=== PATIENT | female | born 1995 | race American Indian/Alaskan Native ===

== ENCOUNTER 2018-08-11 11:11 | Observation (INO) | payer BC ==
--- NOTE | 2018-08-11 11:36 | ED PDOC ---
HPI:STROKE - Time Time: 11:33 - Historian Historian: Patient, Partner - Chief Complaint Chief Complaint: other (seizure) - Onset Date: 08/11/18 Time: 10:45 - TPA Positive for Contraindication: Yes Reason tPA is not being Administered: seizures; nih 0 - Notes: Notes:: Pt. was with boyfriend and got left facial numbness and then twitching of her neck. After that she got a seizure with shaking all over for 5-7 seconds. It stopped and then 10 seconds later had another one for 5-7 seconds. 10 seconds later had a 3rd seizure that lasted 5-7 seconds. Pt. has a hx of seizures, but gets them randomly at night. Not on meds for it. Was post-ictal for a bit after. 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 Pt. denies any pain, dyspnea, weakness, dizziness, headaches, vision changes, abd pain, nausea, vomit, diarrhea. No numbness, tingles. No tongue bite or incontinence. NIHSS Stroke Scale - Date/Time Evaluation Performed Date Performed: 08/11/18 Time Performed: 11:15 When Was NIHSS Performed: Baseline - How Severe is the Stroke Level of Consciousness: 0=Alert LOC to Questions: 0=Both comments correct LOC to commands: 0=Obeys both correctly Best Gaze: 0=Normal Visual: 0=No visual loss Facial: 0=Normal Motor Arm - Left: 0=No drift Motor Arm - Right: 0=No drift Motor Leg - Left: 0=No drift Motor Leg - Right: 0=No drift Limb Ataxia: 0=Absent Sensory: 0=Normal Best Language: 0=No aphasia Dysarthia: 0=Normal articulation Extinction & Inattention (Neglect): 0=Normal, no object Score: 0 rTPA Inclusion/Exclusion - Refusal of Treatment Patient Refused Treatment: No - Inclusion Criteria for Altepase Patient is 18 years or Older: Yes The Clinical Diagnosis of Ischemic Stroke That is Causing a Potentially Disabling Neurological Deficit: No Time of Onset is Well Established to be Less Than 270 Minute Before Treatment Would Begin: Yes Risk/Benefit Discussed With Patient/Family Member Present: No Past Medical History Reviewed: Nursing Documentation, Vital Signs Vital Signs: Last Vital Signs Temp 97.0 F L 08/11/18 11:14 Pulse 95 H 08/11/18 11:14 Resp 18 08/11/18 11:14 BP 139/89 08/11/18 11:14 Pulse Ox 100 08/11/18 11:14 - Medical History PMH: Seizures - Surgical History Surgical History: No Surg Hx - Family History Family History: States: Unknown Family Hx - Living Arrangements Living Arrangements: With Family - Social History Current smoker - smoking cessation education provided: No Alcohol: None Drugs: Denies - Allergies Allergies/Adverse Reactions: Allergies Allergy/AdvReac Type Severity Reaction Status Date / Time mushroom Allergy RASH Verified 08/11/18 11:14 Review of Systems ROS Statement: Except As Marked, All Systems Reviewed And Found Negative Neurological: Positive for: Seizures Physical Exam - Reviewed Nursing Documentation Reviewed: Yes - Physical Exam Appears: Positive for: Uncomfortable Head Exam: Positive for: ATRAUMATIC, NORMAL INSPECTION, NORMOCEPHALIC Skin: Positive for: Normal Color, Warm, DRY Eye Exam: Positive for: Normal appearance, EOMI, PERRL. Negative for: Periorbital swelling, Periorbital tenderness ENT: Positive for: Normal ENT Inspection, Other (no septal hematoma; no tongue laceration). Negative for: Nasal Congestion Neck: Positive for: Normal, Painless ROM Cardiovascular/Chest: Positive for: Regular Rate, Rhythm Respiratory: Positive for: CNT, Normal Breath Sounds Gastrointestinal/Abdominal: Positive for: Normal Exam, Soft. Negative for: Tenderness Back: Positive for: Normal Inspection. Negative for: L CVA Tenderness, R CVA Tenderness Extremity: Positive for: Normal ROM. Negative for: Tenderness, Pedal Edema Neurologic/Psych: Positive for: Alert, lining repairer II-XII, Oriented. Negative for: Motor/Sensory Deficits, Aphasia, Facial Droop - Laboratory Results Result Diagrams: 08/11/18 11:45 08/11/18 11:45 Interpretation Of Abn Labs: no acute - ECG ECG Rhythm: Positive for: Normal QRS, Sinus Rhythm, Nonspecific Changes O2 Sat by Pulse Oximetry: 100 Pulse Ox Interpretation: Normal - Radiology X-Ray: Read By Radiologist X-Ray Interpretation: No Acute Disease - CT Scan/US ct Other Rad Studies (CT/US): Read By Radiologist Other Rad Interpretation: no acute - Progress ED Course And Treament: 1120: Spoke with Dr. Espitia. Not a tpa candidate. Wants workup and give keppra for seizure. 1226: Stable. Pending labs. 1357: Stable. AAOx3. Feels better. Advised to stay in the hospital as reque sted by neurology. 1415: Spoke with Dr. Dowell. Will admit tele obs. - Critical Care Total Time (In Min): 30 Documented Critical Care: Time excludes all time spent performint seperately billable procedures Disposition - Clinical Impression Clinical Impression: Epileptic seizure, generalized - Patient ED Disposition Is Patient to be Admitted: Yes Counseled Patient/Family Regarding: Studies Performed, Diagnosis - Disposition Disposition Time: 13:16 Condition: FAIR - Pt Status Changed To: Hospital Disposition Of: Observation - POA Present On Arrival: None
[2018-08-11] MEDS ORDERED: levETIRAcetam 1,000 MG in Sodium Chloride 0.9% 100 ML IVPB ONE (12:00)
[2018-08-11 12:16] LABS: BASO % 0.6 % (0.0-2.0); EOS # 0.1 K/uL (0.0-0.7); EOS % 2.2 % (0.0-4.0); HEMOGLOBIN 12.6 g/dL (12.0-16.0); INR 0.9; LYMPH # 2.1 K/uL (1.0-4.3); LYMPH % 37.6 % (20.0-40.0); MEAN CORPUSCULAR HEMOGLOBIN 30.9 pg (27.0-31.0); MEAN CORPUSCULAR HGB CONC 33.6 g/dL (33.0-37.0); MEAN PLATELET VOLUME 8.4 fl (7.2-11.7); MONO # 0.7 K/uL (0.0-0.8); MONO % 12.5 % (0.0-10.0); NEUT # 2.6 K/uL (1.8-7.0); NEUT % 47.1 % (50.0-75.0); RBC 4.07 Mil/uL (3.80-5.20); RED CELL DISTRIBUTION WIDTH 13.3 % (11.5-14.5); WHITE BLOOD COUNT 5.5 K/uL (4.8-10.8)
[2018-08-11 12:19] LABS: PARTIAL THROMBOPLASTIN TIME 32.4 Seconds (25.6-37.1)
[2018-08-11] MEDS: Sodium Chloride 0.9% 1,000 ML IV SCH ×2 (12:21→22:00)
[2018-08-11 12:22] LABS: ALB/GLOB RATIO 1.1 (1.0-2.1); ALBUMIN 4.4 g/dL (3.5-5.0); ALT/SGPT 32 U/L (9-52); AST/SGOT 37 U/L (14-36); BLOOD UREA NITROGEN 10 mg/dl (7-17); CALCIUM 9.4 mg/dL (8.4-10.2); GFR NON-AFRICAN AMERICAN > 60; HDL CHOLESTEROL 43 MG/DL (30-70)
--- NOTE | 2018-08-11 12:26 | CT ---
Date of service: 08/11/2018 PROCEDURE: CT HEAD WITHOUT CONTRAST. HISTORY: seizure eval COMPARISON: None available. TECHNIQUE: Axial computed tomography images were obtained through the head/brain without intravenous contrast. Radiation dose: Total exam DLP = 751 mGy-cm. This CT exam was performed using one or more of the following dose reduction techniques: Automated exposure control, adjustment of the mA and/or kV according to patient size, and/or use of iterative reconstruction technique. FINDINGS: HEMORRHAGE: No intracranial hemorrhage. BRAIN: No mass effect or edema. No atrophy or chronic microvascular ischemic changes. VENTRICLES: Unremarkable. No hydrocephalus. CALVARIUM: Unremarkable. PARANASAL SINUSES: Unremarkable as visualized. No significant inflammatory changes. MASTOID AIR CELLS: Unremarkable as visualized. No inflammatory changes. OTHER FINDINGS: The nasopharyngeal lymphatic soft tissues appear prominent. This is not uncommon in a 22-year-old patient. IMPRESSION: No intracranial hemorrhage or mass effect . The nasopharyngeal lymphatic soft tissues appear prominent. This is not uncommon in a 22-year-old patient.
[2018-08-11 12:33] LABS: LDL CHOLESTEROL 66 mg/dL (0-129)
--- NOTE | 2018-08-11 13:57 | RAD ---
Date of service: 08/11/2018 HISTORY: Code Stroke COMPARISON: No prior. FINDINGS: LUNGS: No active pulmonary disease. PLEURA: No significant pleural effusion identified, no pneumothorax apparent. CARDIOVASCULAR: Prominent cardiac silhouette. OSSEOUS STRUCTURES: No significant abnormalities. VISUALIZED UPPER ABDOMEN: Normal. OTHER FINDINGS: None. IMPRESSION: Prominent cardiac silhouette may be a function of technical magnification. PA and lateral chest radiography is recommended when feasible to confirm cardiac size. No pulmonary vascular congestion nevertheless. No acute pulmonary changes appreciable.
[2018-08-11] MEDS ORDERED: Gadodiamide 287 MG/ML VIAL (15ML) IV ONE (15:02)
--- NOTE | 2018-08-11 16:34 | CARD ---
APPROVED REPORT Date of service: 08/11/2018 EKG Measurement Heart [id number] <Conclusion> Normal sinus rhythm with sinus arrhythmia Minimal voltage criteria for LVH, may be normal variant Abnormal ECG
--- NOTE | 2018-08-11 16:51 | MRI ---
Date of service: 08/11/2018 PROCEDURE: MRI BRAIN WITH AND WITHOUT CONTRAST HISTORY: seizure eval COMPARISON: Noncontrast head CT 08/11/2018. TECHNIQUE: Multiplanar, multisequence MR images of the brain were obtained with and without intravenous contrast enhancement. 16 cc of Omniscan was utilized for contrast. FINDINGS: HEMORRHAGE: None DWI: No evidence of an acute or early subacute infarction. BRAIN PARENCHYMA: Intrinsic signal throughout the morgan and white matter structures above below the tentorium appears within normal limits including the brainstem. Bilateral mesial temporal lobes appear within normal limits on high-resolution coronal imaging. There is no mass effect, parenchymal edema or loss of the corticomedullary differentiation. Midline brain anatomy appears within normal limits including the corpus callosum, brainstem and craniocervical junction. There is no suspicious extra-axial fluid collection identified. ENHANCEMENT: No abnormal intracranial enhancement. VENTRICLES: Unremarkable. No hydrocephalus. CRANIUM: Unremarkable. ORBITS: Grossly unremarkable. PARANASAL SINUSES/MASTOIDS: Clear VASCULAR SYSTEM: Skull base flow voids intact. OTHER FINDINGS: None . IMPRESSION: Unremarkable pre and post contrast enhanced MRI of the brain.
--- NOTE | 2018-08-11 17:33 | CP.PCM.HP ---
History of Present Illness - History of Present Illness History of Present Illness: 22 yo female pmhx febrile seizure at age 4-5 years accompanied by her boyfriend presents with complaints of having 3 seizures like episodes within 10 minutes of time. Boyfriend witnessed the entire events. Initially she felt the facial numbness and then twitching of her neck. After that she got a seizure with shaking all over for 5-7 seconds. It stopped and then 10 seconds later had another one for 5-7 seconds. ~8 minutes later had a 3rd episode of seizure that lasted 5-7 seconds. Denies any tongue biting, bowel or bladder incontinence. Reports to be in postictal confusion state for few minutes. Patients mother reports patient took trileptal for a month after the febrile seizures but patient stopped taking the medications. Reports hx blank stare and was told she had small epilepsy but does not take medications. Denies chest pain, dyspnea or focal weakness. Denies any illicit drug use. ROS: all 12 systems reviewed and negative except as mentioned in HPI PMHX: febrile seizures and absence seizure PSHX: Denies Socialhx: denies smoking cigarettes, drinking alcohol or using drugs. Family hx: Father has HTN. Medications: none Allergies: mushroom Present on Admission - Present on Admission Any Indicators Present on Admission: No Review of Systems - Review of Systems All systems: reviewed and no additional remarkable complaints except Past Patient History - Past Social History Alcohol: None Drugs: Denies - NEUROLOGICAL Hx Neurological Disorder: Yes - PSYCHIATRIC Hx Substance Use: No - SURGICAL HISTORY Hx Surgeries: No - ANESTHESIA Hx Anesthesia: No Meds Allergies/Adverse Reactions: Allergies Allergy/AdvReac Type Severity Reaction Status Date / Time cinnamon Allergy ITCHING Verified 08/11/18 18:52 mushroom Allergy RASH Verified 08/11/18 11:14 Physical Exam - Constitutional Appears: Non-toxic, No Acute Distress - Head Exam Head Exam: ATRAUMATIC, NORMAL INSPECTION, NORMOCEPHALIC - Eye Exam Eye Exam: EOMI, Normal appearance, PERRL - ENT Exam ENT Exam: Mucous Membranes Moist, Normal Oropharynx - Neck Exam Neck exam: Positive for: Full Rom, Normal Inspection - Respiratory Exam Respiratory Exam: Clear to Auscultation Bilateral, NORMAL BREATHING PATTERN. absent: Rhonchi, Wheezes - Cardiovascular Exam Cardiovascular Exam: REGULAR RHYTHM, RRR, +S1, +S2 - GI/Abdominal Exam GI & Abdominal Exam: Normal Bowel Sounds, Soft. absent: Tenderness - Extremities Exam Extremities exam: Negative for: calf tenderness, pedal edema - Neurological Exam Neurological exam: Alert, CN II-XII Intact, Oriented x3 - Psychiatric Exam Psychiatric exam: Normal Affect, Normal Mood - Skin Skin Exam: Normal Color, Warm Results - Vital Signs Recent Vital Signs: Last Vital Signs Temp 98.0 F 08/11/18 17:24 Pulse 74 08/11/18 17:24 Resp 20 08/11/18 17:24 BP 112/77 08/11/18 17:24 Pulse Ox 94 L 08/11/18 17:24 - Labs Result Diagrams: 08/11/18 11:45 08/11/18 11:45 Labs: Laboratory Results - last 24 hr 08/11/18 08/11/18 08/11/18 11:23 11:38 11:45 WBC 5.5 RBC 4.07 Hgb 12.6 Hct 37.4 MCV 92.0 MCH 30.9 MCHC 33.6 RDW 13.3 Plt Count 210 MPV 8.4 Neut % (Auto) 47.1 L Lymph % (Auto) 37.6 [place] % (Auto) 12.5 H Eos % (Auto) 2.2 Baso % (Auto) 0.6 Neut # (Auto) 2.6 Lymph # (Auto) 2.1 [place] # (Auto) 0.7 Eos # (Auto) 0.1 Baso # (Auto) 0.0 PT INR APTT Sodium Potassium Chloride Carbon Dioxide Anion Gap BUN Creatinine Est GFR ( Amer) Est GFR (Non-Af Amer) POC Glucose (mg/dL) 97 Random Glucose Calcium Total Bilirubin AST ALT Alkaline Phosphatase Troponin I Total Protein Albumin Globulin Albumin/Globulin Ratio Triglycerides Cholesterol LDL Cholesterol Direct HDL Cholesterol Blood Type B POSITIVE Antibody Screen Negative BBK History Checked No verified bt 08/11/18 08/11/18 11:45 11:45 WBC RBC Hgb Hct MCV MCH MCHC RDW Plt Count MPV Neut % (Auto) Lymph % (Auto) [place] % (Auto) Eos % (Auto) Baso % (Auto) Neut # (Auto) Lymph # (Auto) [place] # (Auto) Eos # (Auto) Baso # (Auto) PT 10.0 INR 0.9 APTT 32.4 Sodium 141 Potassium 3.7 Chloride 108 H Carbon Dioxide 24 Anion Gap 13 BUN 10 Creatinine 0.8 Est GFR ( Amer) > 60 Est GFR (Non-Af Amer) > 60 POC Glucose (mg/dL) Random Glucose 108 H Calcium 9.4 Total Bilirubin 0.2 AST 37 H ALT 32 Alkaline Phosphatase 81 Troponin I < 0.0120 Total Protein 8.3 H Albumin 4.4 Globulin 4.0 H Albumin/Globulin Ratio 1.1 Triglycerides 74 Cholesterol 143 LDL Cholesterol Direct 66 HDL Cholesterol 43 Blood Type Antibody Screen BBK History Checked Assessment & Plan - Assessment and Plan (Free Text) Assessment: 22 yo female with pmhx febrile seizure at age 4-5 years admitted for evaluation of generalized tonic clonic seizure. Plan: Admit to telemetry Neurology consult S/P 1000 mg keppra in ED Head CT and brain MRI unremarkable f/u EEG and labs Patient seen and examined with Dr. Delmer Pelayo, pgy-2
[2018-08-12] MEDS ORDERED: Influenza Vaccine 60 MCG/0.5 ML SYR (3 yr & up) IM ONE (07:50)
[2018-08-12 08:44] VITALS: RESP 20
--- NOTE | 2018-08-12 11:07 | RAD ---
Date of service: 08/12/2018 HISTORY: f/u abnormal CXR COMPARISON: Frontal chest radiograph 08/11/2018. TECHNIQUE: Chest PA and lateral FINDINGS: LUNGS: No active pulmonary disease. Improved inspiratory volume noted. PLEURA: No significant pleural effusion identified. No pneumothorax apparent. CARDIOVASCULAR: Normal. OSSEOUS STRUCTURES: No significant abnormalities. VISUALIZED UPPER ABDOMEN: Normal. OTHER FINDINGS: None. IMPRESSION: No interval acute cardiopulmonary disease appreciated.
[2018-08-12 11:17] LABS: BARBITURATES, UR NEGATIVE (NEGATIVE); BENZODIAZEPINES, UR NEGATIVE (NEGATIVE); OPIATES, UR NEGATIVE (NEGATIVE); PHENCYCLIDINE, UR NEGATIVE (NEGATIVE)
--- NOTE | 2018-08-12 11:37 | CP.PCM.CON ---
History of Present Illness - History of Present Illness History of Present Illness: 22 yr old woman who has a history of seizures, first one with febrile seizure at age 4, gtc in origin, now presents with 3 seizures in a space of one hour, not status epilepticus who is now back to baseline. Miss Kingston has never been on antiepileptic meds, but she is tolerating keppra well. PMH/PSH; no pmh or psh Fh/SH: no tobacco, occasional etoh. All: nkda. on exam: Normal neurological examination. no focal deficits. Past Patient History - Past Social History Alcohol: None Drugs: Denies - NEUROLOGICAL Hx Neurological Disorder: Yes - MUSCULOSKELETAL/RHEUMATOLOGICAL Hx Falls: No - PSYCHIATRIC Hx Substance Use: No - SURGICAL HISTORY Hx Surgeries: No - ANESTHESIA Hx Anesthesia: No Meds Allergies/Adverse Reactions: Allergies Allergy/AdvReac Type Severity Reaction Status Date / Time cinnamon Allergy ITCHING Verified 08/11/18 18:52 mushroom Allergy RASH Verified 08/11/18 11:14 - Medications Medications: Current Medications Acetaminophen (Tylenol 325mg Tab) 650 mg PO Q6 PRN PRN Reason: Pain, moderate (4-7) Famotidine (Pepcid) 20 mg PO BID [facility] Last Admin: 08/12/18 09:04 Dose: 20 mg Sodium Chloride (Sodium Chloride 0.9%) 1,000 mls @ 100 mls/hr IV .Q10H [facility] Last Admin: 08/11/18 22:00 Dose: 100 mls/hr Levetiracetam (Keppra) 500 mg PO BID [facility] Ondansetron HCl (Zofran Inj) 4 mg IVP Q6 PRN PRN Reason: Nausea/Vomiting Results - Vital Signs Recent Vital Signs: Last Vital Signs Temp 97.4 F L 08/12/18 08:43 Pulse 72 08/12/18 08:43 Resp 20 08/12/18 08:43 BP 110/70 08/12/18 08:43 Pulse Ox 100 08/12/18 08:43 - Labs Result Diagrams: 08/11/18 11:45 08/11/18 11:45 Labs: Laboratory Results - last 24 hr 08/11/18 08/11/18 08/11/18 11:38 11:45 11:45 WBC 5.5 RBC 4.07 Hgb 12.6 Hct 37.4 MCV 92.0 MCH 30.9 MCHC 33.6 RDW 13.3 Plt Count 210 MPV 8.4 Neut % (Auto) 47.1 L Lymph % (Auto) 37.6 [place] % (Auto) 12.5 H Eos % (Auto) 2.2 Baso % (Auto) 0.6 Neut # (Auto) 2.6 Lymph # (Auto) 2.1 [place] # (Auto) 0.7 Eos # (Auto) 0.1 Baso # (Auto) 0.0 PT INR APTT Sodium 141 Potassium 3.7 Chloride 108 H Carbon Dioxide 24 Anion Gap 13 BUN 10 Creatinine 0.8 Est GFR ( Amer) > 60 Est GFR (Non-Af Amer) > 60 Random Glucose 108 H Hemoglobin A1c Calcium 9.4 Total Bilirubin 0.2 AST 37 H ALT 32 Alkaline Phosphatase 81 Troponin I < 0.0120 Total Protein 8.3 H Albumin 4.4 Globulin 4.0 H Albumin/Globulin Ratio 1.1 Triglycerides 74 Cholesterol 143 LDL Cholesterol Direct 66 HDL Cholesterol 43 Urine Opiates Screen Urine Methadone Screen Ur Barbiturates Screen Ur Phencyclidine Scrn Ur Amphetamines Screen U Benzodiazepines Scrn U Oth Cocaine Metabols U Cannabinoids Screen Blood Type B POSITIVE Antibody Screen Negative BBK History Checked No verified bt 08/11/18 08/11/18 08/12/18 11:45 14:32 10:56 WBC RBC Hgb Hct MCV MCH MCHC RDW Plt Count MPV Neut % (Auto) Lymph % (Auto) [place] % (Auto) Eos % (Auto) Baso % (Auto) Neut # (Auto) Lymph # (Auto) [place] # (Auto) Eos # (Auto) Baso # (Auto) PT 10.0 INR 0.9 APTT 32.4 Sodium Potassium Chloride Carbon Dioxide Anion Gap BUN Creatinine Est GFR ( Amer) Est GFR (Non-Af Amer) Random Glucose Hemoglobin A1c 5.8 Calcium Total Bilirubin AST ALT Alkaline Phosphatase Troponin I Total Protein Albumin Globulin Albumin/Globulin Ratio Triglycerides Cholesterol LDL Cholesterol Direct HDL Cholesterol Urine Opiates Screen Negative Urine Methadone Screen Negative Ur Barbiturates Screen Negative Ur Phencyclidine Scrn Negative Ur Amphetamines Screen Negative U Benzodiazepines Scrn Negative U Oth Cocaine Metabols Negative U Cannabinoids Screen Negative Blood Type Antibody Screen BBK History Checked Assessment & Plan - Assessment and Plan (Free Text) Assessment: 22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 plan: 1. Continue on keppra 500 mg bid 2. EEG pending. May be done outpatient. Thank you for consulting neurology Dr. lindsey
[2018-08-12 12:56] VITALS: BP 119/81; PULSE 78; TEMP 98; O2SAT 99
--- NOTE | 2018-08-12 15:30 | CP.PCM.DIS ---
Provider - Provider Date of Admission: 08/11/18 14:11 Attending physician: Nakul Dowell MD Time Spent in preparation of Discharge (in minutes): 30 Diagnosis - Discharge Diagnosis (1) Epileptic seizure, generalized Status: Acute Hospital Course - Lab Results Lab Results: Most Recent Lab Values WBC 5.5 K/uL (4.8-10.8) 08/11/18 11:45 RBC 4.07 Mil/uL (3.80-5.20) 08/11/18 11:45 Hgb 12.6 g/dL (12.0-16.0) 08/11/18 11:45 Hct 37.4 % (34.0-47.0) 08/11/18 11:45 MCV 92.0 fl (81.0-99.0) 08/11/18 11:45 MCH 30.9 pg (27.0-31.0) 08/11/18 11:45 MCHC 33.6 g/dL (33.0-37.0) 08/11/18 11:45 RDW 13.3 % (11.5-14.5) 08/11/18 11:45 Plt Count 210 K/uL (130-400) 08/11/18 11:45 MPV 8.4 fl (7.2-11.7) 08/11/18 11:45 Neut % (Auto) 47.1 % (50.0-75.0) L 08/11/18 11:45 Lymph % (Auto) 37.6 % (20.0-40.0) 08/11/18 11:45 [place] % (Auto) 12.5 % (0.0-10.0) H 08/11/18 11:45 Eos % (Auto) 2.2 % (0.0-4.0) 08/11/18 11:45 Baso % (Auto) 0.6 % (0.0-2.0) 08/11/18 11:45 Neut # (Auto) 2.6 K/uL (1.8-7.0) 08/11/18 11:45 Lymph # (Auto) 2.1 K/uL (1.0-4.3) 08/11/18 11:45 [place] # (Auto) 0.7 K/uL (0.0-0.8) 08/11/18 11:45 Eos # (Auto) 0.1 K/uL (0.0-0.7) 08/11/18 11:45 Baso # (Auto) 0.0 K/uL (0.0-0.2) 08/11/18 11:45 PT 10.0 Seconds (9.8-13.1) 08/11/18 11:45 INR 0.9 08/11/18 11:45 APTT 32.4 Seconds (25.6-37.1) 08/11/18 11:45 Sodium 141 mmol/l (132-148) 08/11/18 11:45 Potassium 3.7 MMOL/L (3.6-5.0) 08/11/18 11:45 Chloride 108 mmol/L (98-107) H 08/11/18 11:45 Carbon Dioxide 24 mmol/L (22-30) 08/11/18 11:45 Anion Gap 13 (10-20) 08/11/18 11:45 BUN 10 mg/dl (7-17) 08/11/18 11:45 Creatinine 0.8 mg/dl (0.7-1.2) 08/11/18 11:45 Est GFR ( Amer) > 60 08/11/18 11:45 Est GFR (Non-Af Amer) > 60 08/11/18 11:45 POC Glucose (mg/dL) 97 mg/dL (65-110) 08/11/18 11:23 Random Glucose 108 mg/dL (65-105) H 08/11/18 11:45 Hemoglobin A1c 5.8 % (4.2-6.5) 08/11/18 14:32 Calcium 9.4 mg/dL (8.4-10.2) 08/11/18 11:45 Total Bilirubin 0.2 mg/dl (0.2-1.3) 08/11/18 11:45 AST 37 U/L (14-36) H 08/11/18 11:45 ALT 32 U/L (9-52) 08/11/18 11:45 Alkaline Phosphatase 81 U/L (38-126) 08/11/18 11:45 Troponin I < 0.0120 ng/mL (0.00-0.120) 08/11/18 11:45 Total Protein 8.3 G/DL (6.3-8.2) H 08/11/18 11:45 Albumin 4.4 g/dL (3.5-5.0) 08/11/18 11:45 Globulin 4.0 gm/dL (2.2-3.9) H 08/11/18 11:45 Albumin/Globulin Ratio 1.1 (1.0-2.1) 08/11/18 11:45 Triglycerides 74 mg/DL (0-149) 08/11/18 11:45 Cholesterol 143 mg/dL (0-199) 08/11/18 11:45 LDL Cholesterol Direct 66 mg/dL (0-129) 08/11/18 11:45 HDL Cholesterol 43 MG/DL (30-70) 08/11/18 11:45 Urine Opiates Screen Negative (NEGATIVE) 08/12/18 10:56 Urine Methadone Screen Negative (NEGATIVE) 08/12/18 10:56 Ur Barbiturates Screen Negative (NEGATIVE) 08/12/18 10:56 Ur Phencyclidine Scrn Negative (NEGATIVE) 08/12/18 10:56 Ur Amphetamines Screen Negative (NEGATIVE) 08/12/18 10:56 U Benzodiazepines Scrn Negative (NEGATIVE) 08/12/18 10:56 U Oth Cocaine Metabols Negative (NEGATIVE) 08/12/18 10:56 U Cannabinoids Screen Negative (NEGATIVE) 08/12/18 10:56 Blood Type B POSITIVE 08/11/18 11:38 Antibody Screen Negative 08/11/18 11:38 BBK History Checked No verified bt 08/11/18 11:38 - Hospital Course Hospital Course: 22 yo female pmhx febrile seizure at age 4-5 years accompanied by her boyfriend presented yesterday with complaints of having 3 seizures like episodes within 10 minutes of time. Boyfriend witnessed the entire events. Initially she felt the facial numbness and then twitching of her neck. After that she got a seizure with shaking all over for 5-7 seconds. It stopped and then 10 seconds later had another one for 5-7 seconds. ~8 minutes later had a 3rd episode of seizure that lasted 5-7 seconds. Denies any tongue biting, bowel or bladder incontinence. Reports to be in postictal confusion state for few minutes. Patients mother reports patient took trileptal for a month after the febrile seizures but patient stopped taking the medications. Reports hx blank stare and was told she had small epilepsy but does not take medications. Denies chest pain, dyspnea or focal weakness. Denies any illicit drug use Patient was admitted yesterday. Patient received 1 gm keppra in ED. Head CT and brain MRI were unremarkable, neurology was consulted. Neurologist Dr. Espitia recommended keppra 500 mg po bid for complex partial seizures. Patient also had EEG done today (report not available). While patient was in the hospital, she did not have any episodes of seizure. Patient is hemodynamically stable to discharge home. Advised to f/u with Dr. Espitia in 1 week. Discharge Exam - Head Exam Head Exam: ATRAUMATIC, NORMAL INSPECTION, NORMOCEPHALIC - Eye Exam Eye Exam: EOMI, Normal appearance, PERRL - ENT Exam ENT Exam: Mucous Membranes Moist - Respiratory Exam Respiratory Exam: Clear to PA & Lateral, NORMAL BREATHING PATTERN - Cardiovascular Exam Cardiovascular Exam: REGULAR RHYTHM, RRR, +S1, +S2 - GI/Abdominal Exam GI & Abdominal Exam: Normal Bowel Sounds, Soft. absent: Tenderness - Neurological Exam Neurological exam: Alert, CN II-XII Intact, Oriented x3 - Psychiatric Exam Psychiatric exam: Normal Affect, Normal Mood - Skin Skin Exam: Normal Color, Warm Discharge Plan - Discharge Medications Prescriptions: Levetiracetam [Keppra] 500 mg PO Q12 #60 tablet - Follow Up Plan Condition: FAIR Disposition: HOME/ ROUTINE Instructions: Seizures, Adult (DC) Additional Instructions: follow up with in 1 week Referrals: Nakul Dowell MD [Staff Provider] - Gemma Espitia MD [Medical Doctor] -
== END 2018-08-12 15:15 | disposition home or self-care (01) ==
LOC: H.ER 11:11 → H.ERHOLD 14:11 → H.TEL 17:05
PROVIDERS: ADMIT Family Medicine; ATTEND Family Medicine
DX: G40.209 Localization-related (focal) (partial) symptomatic epilepsy and epileptic syndromes with complex partial seizures, not intractable, without status epilepticus (principal); Z91.018 Allergy to other foods
CPT/HCPCS: 70450; 70553; 71045; 71046; 80053; 80061; 81025; 82948; 83036; 84146; 84484; 85025; 85610; 85730; 86850; 86900; 93005; 96365; 99285; A9579; G0378; G0480; J1953; J7030